=== PATIENT | male | born 1990 | race Two or more races ===

== ENCOUNTER 2020-03-22 14:03 | Emergency (ER) | payer OTHER ==
[~2020-03-22] VITALS: Ht 170.2 cm; Wt 81.6 kg
--- NOTE | 2020-03-22 14:11 | NUR ---
ED Nurse Note: PT brought in ambulance from work for S/P fall from a 8ft tall ladder. pt denies LOC. reports pain to left hip and shoudler 8/10 at this time. pt is alert and oriented x4,
[2020-03-22 14:13] VITALS: BP 122/75
[2020-03-22] MEDS ORDERED: HYDROcodone/Acetamin 5/325 tab ORAL ONE (14:15)
[2020-03-22] MEDS ORDERED: Ketorolac 30mg Inj IM ONE (14:15)
--- NOTE | 2020-03-22 14:50 | Emergency Room Report ---
History of Present Illness General Chief Complaint: Multiple Trauma/Fall Source: Patient Present Illness HPI 29-year-old male presents to the emergency department complaining of 8 out of 10 severity pain and tenderness to the lateral aspect of the left hip, the left upper buttock and the left shoulder region status post slip and fall off of the ladder which was approximately 8 feet. Patient describes sliding down the ladder and near the end he landed on his left side. Patient denies hitting his head or having a loss of consciousness. He denies midline neck or back pain. He denies abdominal tenderness. He denies nausea or vomiting. He reports he is able to stand up and minimally bear weight. He reports he is able to walk without assistance however he is limping. Denies numbness tingling or loss of sensation or gross motor movements of the extremities, incontinence of bowel or bladder. Denies CP, Palpitations, LOC, AMS, dizziness, Changes in Vision, weakness or a sudden severe headache. He denies open wounds or bleeding. He denies bruising. He reports he is right-hand dominant. He denies significant past medical history. Allergies: Coded Allergies: No Known Allergies (Unverified , 03/22/20) COVID-19 Screening Contact w/high risk pt: No Experienced COVID-19 symptoms?: No COVID-19 Testing performed NURSE CHARGE RN: No Patient History Past Medical History: see triage record Past Surgical History: none Pertinent Family History: none Reviewed Nursing Documentation: PMH: Agreed; PSxH: Agreed Nursing Documentation-[facility] Past Medical History: No Stated History Review of Systems All Other Systems: negative except mentioned in HPI Physical Exam Vital Signs Date Time Temp Pulse Resp B/P (MAP) Pulse Ox O2 Delivery O2 Flow Rate FiO2 03/22/20 13:57 98.1 86 18 119/70 (86) 99 Room Air Sp02 EP Interpretation: reviewed, normal General Appearance: no apparent distress, alert, GCS 15, non-toxic Head: normocephalic, atraumatic Eyes: bilateral eye normal inspection, bilateral eye PERRL, bilateral eye EOMI, bilateral eye other - no photophobia ENT: hearing grossly normal, normal voice Neck: full range of motion, no bony tend, tender lateral - left trapezius ttp. FROM Respiratory: chest non-tender, lungs clear, normal breath sounds, no resp iratory distress, no accessory muscle use, no wheezing, speaking full sentences, other - No bruises Cardiovascular #1: regular rate, rhythm, no edema, normal capillary refill Gastrointestinal: normal bowel sounds, soft, other - TTP to the left flank area, abrasion noted, light erythma no significant notable bruises. Genitourinary: CVA tenderness (L) Musculoskeletal: normal range of motion, gait/station normal, non-tender, tender - Left hip posteriolateral tenderness. Pt. able to bear weight and ambulate however visible compensation favoring the left leg as noted. TTp to the posteriolateral aspect of the left shoulder, no visible or palpable step- off. No clavicular tenderness. Pain with raising arm above the 70 degree angle in any direction. No midline spinous process ttp. No palpable step-offs or obvious deformities of the cervical, lumbar, or sacral spine. Neurologic: alert, motor strength/tone normal, oriented x3, sensory intact, responsive, speech normal, other - He answers questions appropriately and provides sufficient amount of detail without increase in response time or difficulty with word recall. Psychiatric: judgement/insight normal Skin: normal color, abrasion - left flank area, left forearm laterally. Medical Decision Making PA Attestation Dr. Weaver is my supervising Physician whom patient management has been discussed with. Diagnostic Impression: Primary Impression: Contusion of left shoulder, initial encounter Additional Impressions: Contusion of left hip region Fall from ladder Qualified Codes: W11.XXXA - Fall on and from ladder, initial encounter ER Course 29-year-old male presents to the emergency department complaining of 8 out of 10 severity pain and tenderness to the lateral aspect of the left hip, the left upper buttock and the left shoulder region status post slip and fall off of an 8ft ladder. Pt. states he was not all the way at the top of the ladder when he fell. Patient describes sliding down the ladder and near the end he landed on his left side. Patient denies hitting his head or having a loss of consciousness. He denies midline neck or back pain. He denies abdominal tenderness. He denies nausea or vomiting. He reports he is able to stand up and minimally bear weight. He reports he is able to walk without assistance however he is limping. Denies numbness tingling or loss of sensation or gross motor movements of the extremities, incontinence of bowel or bladder. Denies CP, Palpitations, LOC, AMS, dizziness, Changes in Vision, weakness or a sudden severe headache. He denies open wounds or bleeding. He denies bruising. He reports he is right-hand dominant. He denies significant past medical history. Ddx considered but are not limited to Fracture, dislocation, contusion, Sprain/Strain/Spasm, Epidural abscess, Neoplastic mets. Vital signs: are WNL, pt. is afebrile H&PE are most consistent with musculoskeletal injury will perform imaging to r/o fractures/dislocations. ORDERS: - X-ray Left SHoulder and Hip 3 views each - negative for fx, Dislocation, or significant soft tissue injury, per preliminary read in ED, and signed by KORINA Moran, my supervising physician has reviewed, and agrees with my interpretation. ED INTERVENTIONS: - [place] 5mg PO -Toradol 15mg IM DISCHARGE: At this time pt. is stable for d/c to home. Will provide printed patient care instructions, and any necessary prescriptions. Care plan and follow up instructions have been discussed with the patient prior to discharge. Other X-Ray Diagnostic Results Other X-Ray Diagnostic Results #1: X-Ray ordered: left Shoulder # of Views/Limited Vs Complete: 3 View Indication: Pain EP Interpretation: Yes PA Xray: Interpretation reviewed, by supervising MD, and agrees with findings. Interpretation: no dislocation, no soft tissue swelling, no fractures Impression: No acute disease Electronically Signed by: Patience Moran PA-C Other X-Ray Diagnostic Results #2: X-Ray ordered: Left Hip # of Views/Limited Vs Complete: 3 View Indication: Pain EP Interpretation: Yes PA Xray: Interpretation reviewed, by supervising MD, and agrees with findings. Interpretation: no dislocation, no soft tissue swelling, no fractures Impression: No acute disease Electronically Signed by: Patience Moran PA-C CT/MRI/US Diagnostic Results CT/MRI/US Diagnostic Results : Imaging Test Ordered: CT Chest, abdomen and Pelvis Without Contrast Impression " No acute fractures or dislocations. No free fluid " -per official radiology report- Please see report for specific details. There was an incidental finding of a right lobe calcification. These results were discussed with this patient and he was instructed to follow-up with his primary care provider to have repeat imaging performed to make sure that this is nothing that is cancerous. I discussed with him that this should be done on an urgent basis. I also handed him a copy of his official radiology report. Patient verbalizes understanding and agreement with this follow-up plan to be evaluated for incidental finding of calcification in the right lobe of his lung. Last Vital Signs Date Time Temp Pulse Resp B/P (MAP) Pulse Ox O2 Delivery O2 Flow Rate FiO2 03/22/20 14:13 90 16 Room Air 03/22/20 14:13 97.8 122/75 99 Status: improved Disposition: HOME, SELF-CARE Condition: Stable Scripts Ibuprofen* (MOTRIN*) 600 Mg Tablet 600 MG ORAL THREE TIMES A DAY, #30 TAB Prov: Patience Moran 03/22/20 Tramadol Hcl* (ULTRAM*) 50 Mg Tablet 50 MG ORAL Q6H PRN for For Pain, #12 TAB 0 Refills Prov: Ptaience Moran 03/22/20 Referrals: Louie Pereira [facility]. [facility] Departure Forms: Return to Work Return to Work Date: Mar 26, 2020 Other Restrictions: May return Sooner if Symptoms have resolved. Return to Full Activity: Mar 29, 2020 Work Restrictions: No Heavy Lifting, No Prolonged Standing Patient Instructions: Contusion, Shoulder Pain, Shoulder Sprain Additional Instructions: Take medications as directed. !! Do not drink alcohol, drive, or operate heavy machinery while taking Tramadol as this may cause drowsiness. Follow up with a Primary Care Provider in 3-5 days, even if your symptoms have resolved. --Please review list of primary care clinics, if you do not already have a primary care provider Return sooner to ED if new symptoms occur, or current symptoms become worse. - Please note that this Emergency Department Report was dictated using Passworksforeign language instructor technology software, occasionally this can lead to erroneous entry secondary to interpretation by the dictation equipment. Patience Moran Mar 22, 2020 14:50
--- NOTE | 2020-03-22 15:10 | NUR ---
ED Nurse Note: taken tp x ray by electrical instrument technician
--- NOTE | 2020-03-22 15:31 | NUR ---
ED Nurse Note: returned back from xray
[2020-03-22] MEDS ORDERED: TRAMADOL HCL50 MG ORAL (15:40)
[2020-03-22] MEDS ORDERED: IBUPROFEN600 M1 ORAL (15:40)
--- NOTE | 2020-03-22 16:19 | NUR ---
ED Nurse Note: pt taken to Ct via w/c in stable condition by tool maintenance technician.
--- NOTE | 2020-03-22 17:02 | Diagnostic Imaging Report ---
Indication: Lower abdominal pain 8 out of 10 Technique: Spiral acquisitions obtained through the abdomen and pelvis. No oral contrast utilized, per emergency room physician request No IV contrast utilized, per referring physician request.. Multiplanar reconstructions were generated. Total dose length product 467 mGycm. CTDIvol(s) 8 point mGy. Dose reduction achieved using automated exposure control Comparison: None Findings: Lack of enteric contrast limits assessment of the GI tract. The appendix is normal. No evidence of diverticulosis or diverticulitis. No free or loculated intraperitoneal gas or fluid is evident. No small bowel distention. Distal esophagus, stomach, duodenum are unremarkable. Lack of IV contrast limits assessment of the solid organs. The liver, gallbladder, bile ducts, pancreas, spleen, adrenals, kidneys are unremarkable. No retroperitoneal or mesenteric mass or adenopathy. No pelvic mass or adenopathy. The included lung bases demonstrate a 12 mm mass in the right costophrenic sulcus. This is mostly calcified. It is well-circumscribed. It is not possible to tell whether macroscopic fat is present. The bones are unremarkable. Impression: 12 mm mass in the right costophrenic sulcus. 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 Recommend comparison with any prior exams that may be available, consider short interval surveillance in 6 months Otherwise negative The CT scanner at [facility] is accredited by the [employer] and the scans are performed using protocols designed to limit radiation exposure to as low as reasonably achievable to attain images of sufficient resolution adequate for diagnostic evaluation.
[2020-03-22 17:47] VITALS: BP 128/79
--- NOTE | 2020-03-22 17:47 | NUR ---
ER DISCHARGE NOTE: Patient is cleared to be discharged per ERMD, pt is aox4, on room air, with stable vital signs. pt was given dc and prescription instructions, pt was able to verbalize understanding, pt id band removed without complications. pt is able to ambulate with steady gait. pt took all belongings.
--- NOTE | 2020-03-22 17:51 | Diagnostic Imaging Report ---
Indication: Left shoulder pain Technique: 3 views of the left shoulder Comparison: none Findings: No acute fractures. No dislocations. Joint spaces are preserved. Impression: Negative
--- NOTE | 2020-03-22 18:06 | Diagnostic Imaging Report ---
Indication: Left hip pain Technique: 2 views of the left hip, one view the pelvis Comparison: none Findings: No acute fractures. No dislocations. The joint spaces are preserved Impression: Negative
== END 2020-03-22 17:47 | disposition home or self-care (01) ==
LOC: EDBD 14:03 → EMR 15:19
DX: S40.012A Contusion of left shoulder, initial encounter (principal); S70.02XA Contusion of left hip, initial encounter; W11.XXXA Fall on and from ladder, initial encounter; Y92.9 Unspecified place or not applicable; R52 Pain, unspecified; S30.811A Abrasion of abdominal wall, initial encounter; S50.812A Abrasion of left forearm, initial encounter
CPT/HCPCS: 73030; 73502; 74176; 96372; 99284; J1885